=== PATIENT | male | born 1975 | race Caucasian/White ===

== ENCOUNTER 2024-05-01 04:06 | Emergency (ER) | payer MEDICAID ==
[~2024-05-01] VITALS: Ht 177.8 cm; Wt 79.4 kg
[2024-05-01 04:26] VITALS: BP_SYST 142; PULSE 71; RESP 20; TEMP 98; O2SAT 98
[2024-05-01 04:37] VITALS: BP_SYST 142; PULSE 71; RESP 20; TEMP 98; O2SAT 98
[2024-05-01] MEDS ORDERED: VIS25 PO (04:45)
[2024-05-01] MEDS ORDERED: cloNIDine HCL 0.1 MG TABLET ONE (16:57)
== END 2024-05-01 04:49 | disposition home or self-care (01) ==
LOC: SED 04:06
DX: F41.9 Anxiety disorder, unspecified (principal); Z76.0 Encounter for issue of repeat prescription; Z79.899 Other long term (current) drug therapy
CPT/HCPCS: 99283